=== PATIENT | male | born 1980 | race Caucasian/White ===

== ENCOUNTER 2020-11-24 20:09 | Observation (INO) | payer OTHER ==
[2020-11-24 20:32] VITALS: BMI 23.5
[2020-11-24] MEDS ORDERED: LACTATED RINGERS SOLUTION 1000 ML INFUS.BAG IV ONE (21:20)
[2020-11-24 21:45] LABS: EOS % 1.2 % (0-4.5); HEMATOCRIT 44.1 % (35.4-49); HEMOGLOBIN 15.3 GM/dL (11.7-16.9); LYMPH % 32.5 % (8-40); MCH 31.4 pg (25.7-33.7); MCHC 34.8 g/dl (32.0-35.9); MEAN CELL VOLUME 90.2 fl (80-96); MEAN PLT VOLUME 8.8 fl (7.5-11.1); MONO % 8.9 % (3.8-10.2); NEUT % 57.4 % (42.8-82.8); PLATELET COUNT 205 K/MM3 (134-434); RBC 4.89 M/mm3 (4.00-5.60); RDW 12.8 % (11.9-15.9); WHITE BLOOD COUNT 9.9 K/mm3 (4.0-10.0)
[2020-11-24 21:52] LABS: INR 1.02 (0.83-1.09); PROTHROMBIN TIME (PATIENT) 12.3 SEC (9.7-13.0)
[2020-11-24 21:55] LABS: ACTIVATED PTT 28.8 SECONDS (25.2-36.5)
[2020-11-24 22:01] LABS: CHLORIDE 108 mmol/L (98-107); SODIUM 141 mmol/L (136-145)
[2020-11-24 22:03] LABS: ALBUMIN 4.2 g/dl (3.4-5.0); ANION GAP 8 MMOL/L (8-16); BLOOD UREA NITROGEN 19.5 mg/dL (7-18); CALCIUM 9.4 mg/dL (8.5-10.1); CO2 24 mmol/L (21-32); GLUCOSE,RANDOM 93 mg/dL (74-106)
[2020-11-24 22:07] LABS: SGOT/AST 7 U/L (15-37); SGPT/ALT 16 U/L (13-61)
[2020-11-24 22:08] LABS: BILIRUBIN,TOTAL 0.8 mg/dL (0.2-1)
[2020-11-24 22:09] LABS: TOT PROT 7.1 g/dl (6.4-8.2)
[2020-11-24 22:10] LABS: ALK PHOS 62 U/L (45-117)
[2020-11-24] MEDS ORDERED: POTASSIUM CHLORIDE TABS 20 MEQ TABLET.ER (FP) PO ONE ×2 (22:53→22:59)
[2020-11-24 23:42] LABS: URINE APPEARANCE CLEAR; URINE BILIRUBIN NEGATIVE (NEGATIVE); URINE COLOR YELLOW; URINE GLUCOSE (UA) NEGATIVE (NEGATIVE); URINE KETONE 2+ (NEGATIVE); URINE LEUK ESTERASE NEGATIVE (NEGATIVE); URINE NITRITE NEGATIVE (NEGATIVE); URINE PROTEIN NEGATIVE (NEGATIVE)
[2020-11-25] MEDS ORDERED: ASPIRIN 81 MG CHEWABLE TABLETS PO ONE (00:58)
[2020-11-25] MEDS ORDERED: ASPIRIN 81 MG CHEWABLE TABLETS ONE ×2 (01:06→10:48)
[2020-11-25] MEDS: SODIUM CHLORIDE 1,000 ML IV SCH (04:09)
[2020-11-25] MEDS ORDERED: MORPHINE SULFATE 2 MG/ML VIAL IVPUSH ONE (04:11)
[2020-11-25] MEDS ORDERED: MORPHINE SULFATE 2 MG/ML VIAL ONE (04:24)
[2020-11-25 07:25] LABS: EOS % 1.8 % (0-4.5); HEMATOCRIT 38.4 % (35.4-49); HEMOGLOBIN 13.8 GM/dL (11.7-16.9); LYMPH % 36.5 % (8-40); MCH 32.5 pg (25.7-33.7); MCHC 35.8 g/dl (32.0-35.9); MEAN CELL VOLUME 90.8 fl (80-96); MEAN PLT VOLUME 8.5 fl (7.5-11.1); MONO % 9.7 % (3.8-10.2); PLATELET COUNT 176 K/MM3 (134-434); RBC 4.23 M/mm3 (4.00-5.60); WHITE BLOOD COUNT 7.9 K/mm3 (4.0-10.0)
[2020-11-25] MEDS ORDERED: methylPREDNISolone NA SUCC 125 MG/2 ML VIAL IVPUSH ONE (07:44)
[2020-11-25 07:47] LABS: CHLORIDE 112 mmol/L (98-107); SODIUM 142 mmol/L (136-145)
[2020-11-25 07:55] LABS: ANION GAP 5 MMOL/L (8-16); BLOOD UREA NITROGEN 15.6 mg/dL (7-18); CALCIUM 8.3 mg/dL (8.5-10.1); CO2 24 mmol/L (21-32); GLUCOSE,RANDOM 84 mg/dL (74-106); MAGNESIUM 2.2 mg/dL (1.8-2.4)
[2020-11-25 07:56] LABS: BILIRUBIN,TOTAL 0.6 mg/dL (0.2-1); SGPT/ALT 14 U/L (13-61)
[2020-11-25 07:58] LABS: ALK PHOS 49 U/L (45-117); CHOLESTEROL 178 mg/dL (50-200); CREATININE 0.8 mg/dL (0.55-1.3); SGOT/AST 8 U/L (15-37); TOT PROT 5.5 g/dl (6.4-8.2)
[2020-11-25 07:59] LABS: LDL CHOLESTEROL (ONLY SJRH) 112 mg/dL (5-100); TRIGLYCERIDES 68 mg/dL (0-150)
[2020-11-25 08:00] LABS: HDL CHOLESTEROL 38 mg/dL (40-60)
[2020-11-25 08:06] LABS: ALBUMIN 3.2 g/dl (3.4-5.0)
[2020-11-25] MEDS ORDERED: methylPREDNISolone NA SUCC 125 MG/2 ML VIAL ONE (08:15)
[2020-11-25 11:20] LABS: COCAINE, UR NEGATIVE ng/ml (CUTOFF=300); URINE BARBITURATES NEGATIVE ng/ml (CUTOFF=200)
[2020-11-25 11:22] LABS: PHENCYCLIDINE,URINE NEGATIVE ng/ml (CUTOFF=25); URINE AMPHETAMINES NEGATIVE ng/ml (CUTOFF=500)
[2020-11-25 11:45] LABS: METHADONE, UR NEGATIVE ng/ml (CUTOFF=300); OPIATES, URI POSITIVE ng/ml (CUTOFF=300); URINE BENZODIAZEPINES NEGATIVE ng/ml (CUTOFF=200)
[2020-11-25] MEDS ORDERED: morphine SULFATE 4 MG/ML VIAL ONE ×2 (14:23→22:21)
[2020-11-25] MEDS ORDERED: morphine SULFATE 4 MG/ML VIAL IVPUSH PRN (14:42)
[2020-11-25] MEDS ORDERED: ONDANSETRON 4 MG/2 ML VIAL IVPUSH PRN (22:51)
[2020-11-25] MEDS ORDERED: ONDANSETRON 4 MG/2 ML VIAL ONE (23:03)
[2020-11-25] MEDS ORDERED: IBUPROFEN 400 MG TABLET (FP) PO ONE ×2 (23:20→23:55)
[2020-11-26] MEDS ORDERED: LORazepam 0.5 MG TABLET PO ONE (00:39)
[2020-11-26] MEDS ORDERED: LORazepam 0.5 MG TABLET ONE (00:44)
[2020-11-26] MEDS: SODIUM CHLORIDE 1,000 ML IV SCH (05:53)
[2020-11-26 06:21] VITALS: TEMP 97.5
[2020-11-26] MEDS ORDERED: ASPIRIN 81 MG CHEWABLE TABLETS PO SCH (10:00)
[2020-11-26] MEDS ORDERED: diphenhydrAMINE HCL 25 MG CAPSULE (FP) PO ONE ×2 (11:11→12:46)
[2020-11-26] MEDS ORDERED: LORATADINE 10 MG TABLET PO ONE (11:11)
[2020-11-26] MEDS ORDERED: LORATADINE 10 MG TABLET ONE (11:12)
[2020-11-26] MEDS ORDERED: ASPIRIN 81 MG CHEWABLE TABLETS ONE (12:46)
[2020-11-26] MEDS ORDERED: predniSONE 20 MG TABLET (UD) PO ONE ×2 (14:20→15:12)
[2020-11-26] MEDS ORDERED: CYCLOBENZAPRINE HCL 10 MG TABLET (FP) PO ONE (14:30)
[2020-11-26] MEDS ORDERED: CYCLOBENZAPRINE HCL 5 MG TABLET PO SCH (15:15)
[2020-11-26] MEDS ORDERED: CYCLOBENZAPRINE HCL 10 MG TABLET (FP) ONE (15:16)
[2020-11-26 15:24] VITALS: BP 108/62; PULSE 79
[2020-11-26] MEDS ORDERED: predniSONE 20 MG TABLET (UD) PO SCH (22:00)
== END 2020-11-26 15:19 | disposition home or self-care (01) ==
LOC: JER 20:09 → JERBED 11-25 01:09
PROVIDERS: ADMIT Internal Medicine; ATTEND Family Medicine
PROC: 3E033GC Introduction of Other Therapeutic Substance into Peripheral Vein, Percutaneous Approach (ICD-10-PCS; principal; 2020-11-25)
PROC: 3E0337Z Introduction of Electrolytic and Water Balance Substance into Peripheral Vein, Percutaneous Approach (ICD-10-PCS; 2020-11-25)
PROC: 3E033NZ Introduction of Analgesics, Hypnotics, Sedatives into Peripheral Vein, Percutaneous Approach (ICD-10-PCS; 2020-11-25)
DX: R79.89 Other specified abnormal findings of blood chemistry (principal); E87.6 Hypokalemia; R07.9 Chest pain, unspecified; R00.0 Tachycardia, unspecified; R00.2 Palpitations; R21 Rash and other nonspecific skin eruption; R82.5 Elevated urine levels of drugs, medicaments and biological substances
CPT/HCPCS: 36415; 71046-TC-FY; 71275-TC; 78452-TC; 80053; 80061; 80307; 81003; 82550; 83721; 83735; 84443; 84484; 85025; 85610; 85730; 86140; 93005; 93010; 93017; 93306-TC; 96361; 96374; 96375; 96376; 99285-25; A9502; C9803; G0378; Q9967; U0003; U0005

== ENCOUNTER 2021-01-26 05:18 | Day surgery (SDC) | payer OTHER ==
[2021-01-25 10:18] VITALS: BMI 24.3
[2021-01-26] MEDS ORDERED: oxyCODONE HCL 5 MG TABLET PO PRN (16:23)
[2021-01-26] MEDS ORDERED: ONDANSETRON 4 MG/2 ML VIAL IVPUSH PRN (16:23)
[2021-01-26] MEDS ORDERED: PROMETHAZINE HCL 25 MG/1 ML VIAL IVPUSH PRN (16:23)
[2021-01-26] MEDS ORDERED: MIDAZOLAM HCL 2 MG/2 ML SINGLE DOSE VIAL ONE (16:27)
[2021-01-26] MEDS ORDERED: PROPOFOL 20 ML ONE (16:27)
[2021-01-26] MEDS ORDERED: LACTATED RINGERS SOLUTION 1,000 ML IV SCH (16:30)
[2021-01-26] MEDS ORDERED: ceFAZolin 2 GRAM PREMIX BAG IVPB ONE (16:37)
[2021-01-26] MEDS ORDERED: ELECTROLYTE-148 SOLN 1,000 ML IV SCH (17:00)
[2021-01-26] MEDS ORDERED: oxyCODONE HCL 5 MG TABLET ONE (17:27)
[2021-01-26 18:04] VITALS: BP 115/70; PULSE 68; TEMP 99
== END 2021-01-26 18:20 | disposition home or self-care (01) ==
LOC: JASU-SURG 05:18
PROVIDERS: ATTEND Urology
PROC: 0TF7XZZ Fragmentation in Left Ureter, External Approach (ICD-10-PCS; principal; 2021-01-26 16:00)
DX: N20.1 Calculus of ureter (principal)